=== PATIENT | female | born 1940 | race Caucasian/White ===

== ENCOUNTER 2019-05-14 13:20 | Emergency (ER) | payer SELFPAY ==
[~2019-05-14] VITALS: Ht 162.6 cm; Wt 69.0 kg
[2019-05-14] VITALS (11 sets, daily range): BP systolic 149–186; BP diastolic 59–99; PULSE 56–100; RESP 15–20; Ht 162.6 cm; Wt 69.0 kg
[~2019-05-14 13:20] MED LIST: CLON2TAB12 PO; DIPH1POW PO; ENAL10TA PO; LOPE-123 PO; OMEP20CA17 PO; [UNRECOGNIZED DRUG - OTHER] PO
[2019-05-14] MEDS ORDERED: SOD CHLORIDE 0.9% 100 ML ONE (13:56)
[2019-05-14] MEDS ORDERED: IOHEXOL 100 ML ONE (13:56)
[2019-05-14] MEDS ORDERED: SOD CHLORIDE 0.9% 50 ML IV ONE (14:30)
[2019-05-14] MEDS ORDERED: ALTEPLASE 100 MG INJ IV* ONE (14:30)
[2019-05-14] MEDS ORDERED: ALTEPLASE (tPA) 1 MG/ML BOLUS SYG IV* ONE (14:30)
== END 2019-05-14 18:25 | disposition short-term general hospital (02) ==
LOC: E/R 13:20
DX: I63.9 Cerebral infarction, unspecified (principal); E11.9 Type 2 diabetes mellitus without complications; Z85.3 Personal history of malignant neoplasm of breast
CPT/HCPCS: 37195; 70450; 70496; 70498; 71045; 80048; 80061; 80307; 82550; 82553; 82962; 83036; 84484; 85025; 85610; 85730; 99285; J2997; Q9967; 93005